=== PATIENT | female | born 2005 | race Caucasian/White ===

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

== ENCOUNTER 2024-02-26 19:29 | Emergency (ER) | payer OTHER ==
[~2024-02-26] VITALS: Ht 162.6 cm; Wt 68.5 kg
[~2024-02-26 19:29] MED LIST: IRON240 MG
[2024-02-26] MEDS ORDERED: PRENATAL 19 CH1 EACH PO (20:11)
[2024-02-26] MEDS ORDERED: CEFTRIAXONE SODIUM 1,000 MG VIAL IM ONE (20:30)
[2024-02-26 20:54] LABS: PH,URINE 5.5 (5.0-8.0); URINE APPEARANCE Cloudy; URINE BILIRRUBIN Negative (NEGATIVE); URINE COLOR Yellow; URINE GLUCOSE Negative (NEGATIVE); URINE KETONE Trace (NEGATIVE); URINE LEUKOCYTE Moderate; URINE NITRATE Negative; URINE PROTEIN 30 (NEGATIVE)
[2024-02-26 20:58] LABS: URINE BACTERIA 658.9 uL (0.0-1933); URINE EPITHELIAL CELLS 14.8 uL (0.0-38.8); URINE WBC 2730.6 uL (0.0-23.2)
[2024-02-26 21:29] LABS: URINE CAST 0.15 uL (0.0-1.40)
[2024-02-26 21:30] LABS: URINE BLOOD TRACE
== END 2024-02-26 22:06 | disposition home or self-care (01) ==
LOC: ER 19:29
PROVIDERS: General Practice
DX: O23.31 Infections of other parts of urinary tract in pregnancy, first trimester (principal); N39.0 Urinary tract infection, site not specified; Z3A.01 Less than 8 weeks gestation of pregnancy; Z91.040 Latex allergy status

== ENCOUNTER 2024-06-14 20:42 | Outpatient (CLI) | payer OTHER ==
[2024-06-14 20:04] VITALS: BP 101/63
[~2024-06-14 20:42] MED LIST changes: +PRENATAL 19 CH1 EACH PO
[2024-06-14] MEDS ORDERED: RINGERS SOLUTION,LACTATED 1,000 ML IV SCH (21:00)
[2024-06-14 21:10] LABS: URINE APPEARANCE Cloudy; URINE BILIRRUBIN Negative (NEGATIVE); URINE BLOOD Negative; URINE COLOR Dark Yellow; URINE GLUCOSE Negative (NEGATIVE); URINE KETONE Trace (NEGATIVE); URINE LEUKOCYTE Moderate; URINE NITRATE Negative; URINE PROTEIN 30 (NEGATIVE)
[2024-06-14 21:13] LABS: URINE BACTERIA 2491.8 uL (0.0-1933); URINE EPITHELIAL CELLS 26.4 uL (0.0-38.8); URINE RBC 37.8 uL (0.0-20.8)
[2024-06-14 21:24] LABS: HEMATOCRIT 25.6 % (36.0-45.00); MEAN CORPUSCULAR HGB CONC 32.9 g/dl (32.0-36.0); PLATELET COUNT 275 K/uL (150-450); RED BLOOD COUNT 3.51 M/uL (4.00-6.00)
[2024-06-14 21:25] LABS: HEMOGLOBIN 8.4 g/dL (12.0-15.00); MEAN CORPUSCULAR HEMOGLOBIN 23.9 pg (27.00-32.0)
[2024-06-14 21:35] LABS: RED CELL DISTRIBUTION WIDTH 16.2 % (11.5-14.5)
[2024-06-14] MEDS ORDERED: SOD FERRIC GLUC COMPLX/SUCROSE 125 MG in 0.9 % SODIUM CHLORIDE 100 ML IV SCH (22:01)
[2024-06-14 22:20] LABS: URINE CAST 0.14 uL (0.0-1.40); URINE YEAST MODERATE /hpf
[2024-06-14 22:26] LABS: ALBUMIN 2.7 gm/dL (3.4-5.0); BILIRUBIN TOTAL 0.33 mg/dL (0.3-1.2); CALCIUM 8.4 mg/dL (8.5-10.1); CREATININE SERUM 0.56 mg/dL (0.55-1.02); GFR 136.65; GLOBULINA 3.8 G/DL (2.4-3.5); POTASSIUM 4.14 mEq/L (3.5-5.1); TOTAL PROTEIN 6.5 gm/dL (6.4-8.2)
[2024-06-14] MEDS ORDERED: AZITHROMYCIN 500 MG TABLET PO ONE (22:30)
[2024-06-14 23:14] VITALS: BP 108/68
[2024-06-14 23:43] VITALS: BP 108/68
== END 2024-06-14 23:43 | disposition home or self-care (01) ==
LOC: OBS/DEL 20:42
PROVIDERS: ATTEND Obstetrics & Gynecology
DX: O26.893 Other specified pregnancy related conditions, third trimester (principal); Z3A.30 30 weeks gestation of pregnancy; A49.3 Mycoplasma infection, unspecified site

== ENCOUNTER 2024-08-07 17:03 | Outpatient (CLI) | payer OTHER ==
[~2024-08-07] VITALS: Ht 162.6 cm; Wt 82.6 kg
[2024-08-07 16:18] VITALS: BP 94/61
[2024-08-07] MEDS ORDERED: RINGERS SOLUTION,LACTATED 1,000 ML IV SCH (17:15)
[2024-08-07 18:04] LABS: URINE APPEARANCE Cloudy; URINE BILIRRUBIN Small (NEGATIVE); URINE BLOOD Negative; URINE COLOR Dark Yellow; URINE GLUCOSE Negative (NEGATIVE); URINE KETONE Trace (NEGATIVE); URINE LEUKOCYTE Small; URINE NITRATE Negative; URINE PROTEIN 30 (NEGATIVE)
[2024-08-07 18:05] LABS: HEMOGLOBIN 8.1 g/dL (12.0-15.00); MEAN CELL VOLUME 66.9 fL (80.00-100.00); MEAN CORPUSCULAR HEMOGLOBIN 21.6 pg (27.00-32.0); MEAN CORPUSCULAR HGB CONC 32.2 g/dl (32.0-36.0); PLATELET COUNT 295 K/uL (150-450); RED BLOOD COUNT 3.74 M/uL (4.00-6.00); RED CELL DISTRIBUTION WIDTH 18.6 % (11.5-14.5)
[2024-08-07 18:08] LABS: URINE BACTERIA 2583.8 uL (0.0-1933); URINE EPITHELIAL CELLS 113.5 uL (0.0-38.8); URINE RBC 3.5 uL (0.0-20.8); URINE WBC 70.7 uL (0.0-23.2)
[2024-08-07 18:23] LABS: URINE CAST 0.29 uL (0.0-1.40)
[2024-08-07 18:24] LABS: URINE MUCUS MODERATE
[2024-08-07] MEDS ORDERED: SOD FERRIC GLUC COMPLX/SUCROSE 62.5 MG/5 ML AMPUL IV NR (19:30)
[2024-08-07 20:02] VITALS: BP 94/60
[2024-08-07 21:34] VITALS: BP 96/60
== END 2024-08-07 21:44 | disposition home or self-care (01) ==
LOC: OBS/DEL 17:03
PROVIDERS: ATTEND Obstetrics & Gynecology
DX: O36.8130 Decreased fetal movements, third trimester, not applicable or unspecified (principal); Z3A.38 38 weeks gestation of pregnancy

== ENCOUNTER 2024-08-11 12:45 | Inpatient (IN) | payer OTHER ==
[~2024-08-11] VITALS: Ht 162.6 cm; Wt 83.5 kg
[2024-08-11 15:10] LABS: PH,URINE 6.5 (5.0-8.0); URINE APPEARANCE Cloudy; URINE BILIRRUBIN Negative (NEGATIVE); URINE BLOOD Negative; URINE COLOR Yellow; URINE GLUCOSE Negative (NEGATIVE); URINE KETONE Negative (NEGATIVE); URINE LEUKOCYTE Moderate; URINE NITRATE Negative; URINE PROTEIN Negative (NEGATIVE)
[2024-08-11 15:14] LABS: URINE EPITHELIAL CELLS 126.3 uL (0.0-38.8); URINE RBC 4.8 uL (0.0-20.8)
[2024-08-11 15:27] LABS: URINE BACTERIA > 9821.5 uL (0.0-1933); URINE CAST 0.58 uL (0.0-1.40); URINE CRYSTALS FEW /HPF
[2024-08-11 15:33] LABS: INR 0.94; PARTIAL THROMBOPLASTIN TIME 23.9 SECONDS (22.0-34.0); PROTHROMBIN TIME 10.3 SECONDS (9.0-11.5)
[2024-08-11 15:39] LABS: RH POSITIVE
[2024-08-11 16:04] LABS: BASO % 0.5 % (0.1-1.2); EOS # 0.16 (0.04-0.54); EOS % 1.6 % (0.7-7.0); LYMPH # 1.89 (1.18-3.74); LYMPH % 18.4 % (19.3-53.1); MEAN CORPUSCULAR HEMOGLOBIN 21.7 pg (25.6-32.2); MONO # 1.23 (0.24-0.82); NEUT # 6.51 (1.56-6.13); NEUT % 63.4 % (34.0-71.1); PLATELET COUNT 269 K/uL (163-369); RED BLOOD COUNT 3.64 M/uL (3.93-5.22); RED CELL DISTRIBUTION WIDTH 19.3 % (11.6-14.4)
[2024-08-11 16:16] LABS: HEMATOCRIT 25.7 % (34.1-44.9)
[2024-08-11 16:19] LABS: HEMOGLOBIN 7.9 g/dL (11.2-15.7)
[2024-08-15] MEDS ORDERED: IRON236 MG PO (21:37)
[2024-08-15 21:49] VITALS: BP 103/70
[2024-08-15] MEDS ORDERED: RINGERS SOLUTION,LACTATED 1,000 ML IV SCH (22:15)
[2024-08-15 23:24] VITALS: BP 108/74
[2024-08-15 23:36] LABS: BASO % 0.4 % (0.1-1.2); EOS # 0.18 (0.04-0.54); EOS % 1.7 % (0.7-7.0); HEMATOCRIT 27.2 % (34.1-44.9); LYMPH # 2.29 (1.18-3.74); LYMPH % 21.2 % (19.3-53.1); MEAN CORPUSCULAR HEMOGLOBIN 20.8 pg (25.6-32.2); MONO # 1.35 (0.24-0.82); NEUT # 6.75 (1.56-6.13); NEUT % 62.3 % (34.0-71.1); PLATELET COUNT 298 K/uL (163-369); RED BLOOD COUNT 3.89 M/uL (3.93-5.22)
[2024-08-16 00:07] LABS: MONO % 12.5 % (4.7-12.5)
[2024-08-16 00:08] LABS: HEMOGLOBIN 8.1 g/dL (11.2-15.7)
[2024-08-16 03:57] VITALS: BP 106/69
[2024-08-16 06:49] VITALS: BP 108/73; O2SAT 98
[2024-08-16 11:32] VITALS: BP 118/76
[2024-08-16 16:09] VITALS: BP 104/70
[2024-08-16 17:13] LABS: BASO % 0.6 % (0.1-1.2); HEMATOCRIT 31.7 % (34.1-44.9); LYMPH # 1.84 (1.18-3.74); LYMPH % 19.1 % (19.3-53.1); MEAN CORPUSCULAR HEMOGLOBIN 22.1 pg (25.6-32.2); MONO # 0.94 (0.24-0.82); MONO % 9.8 % (4.7-12.5); NEUT # 6.56 (1.56-6.13); NEUT % 68.3 % (34.0-71.1); PLATELET COUNT 258 K/uL (163-369); RED BLOOD COUNT 4.43 M/uL (3.93-5.22); RED CELL DISTRIBUTION WIDTH 20.4 % (11.6-14.4)
[2024-08-16 17:16] LABS: HEMOGLOBIN 9.8 g/dL (11.2-15.7)
[2024-08-16] MEDS ORDERED: ERYTHROMYCIN BASE OPHT 1GM EACH TUBE OP ONE (18:45)
[2024-08-16] MEDS ORDERED: OXYTOCIN 10 UNITS/ML VIAL ONE (18:45)
[2024-08-16] MEDS ORDERED: CEFOXITIN SODIUM 2,000 MG VIAL IV ONE (20:04)
[2024-08-16] MEDS ORDERED: KETOROLAC TROMETHAMINE 60 MG VIAL IM STA (21:44)
[2024-08-16] MEDS ORDERED: OXYTOCIN 1,000 ML IV SCH (21:45)
[2024-08-16] MEDS ORDERED: MORPHINE SULFATE 4 MG/ML VIAL IV ONE ×2 (21:45→22:15)
[2024-08-16] MEDS ORDERED: MORPHINE SULFATE 4 MG/ML CARTRIDGE IV PRN (21:45)
[2024-08-16] MEDS ORDERED: CHLORHEXIDINE GLUCONATE 120 ML BOTTLE TOP ONE (21:45)
[2024-08-16] MEDS ORDERED: RINGERS SOLUTION,LACTATED 1,000 ML IV SCH (21:45)
[2024-08-16] MEDS ORDERED: ONDANSETRON HCL 2 MG/ML VIAL ONE (21:58)
[2024-08-16 23:19] LABS: BASO % 0.6 % (0.1-1.2); EOS # 0.04 (0.04-0.54); EOS % 0.4 % (0.7-7.0); HEMATOCRIT 37.7 % (34.1-44.9); HEMOGLOBIN 11.7 g/dL (11.2-15.7); LYMPH # 1.62 (1.18-3.74); MEAN CORPUSCULAR HEMOGLOBIN 22.5 pg (25.6-32.2); MONO # 0.55 (0.24-0.82); MONO % 5.1 % (4.7-12.5); NEUT # 8.33 (1.56-6.13); NEUT % 77.3 % (34.0-71.1); PLATELET COUNT 276 K/uL (163-369); RED BLOOD COUNT 5.19 M/uL (3.93-5.22); RED CELL DISTRIBUTION WIDTH 20.9 % (11.6-14.4)
[2024-08-17] MEDS ORDERED: OXYTOCIN 10 UNITS/ML VIAL ONE (00:57)
[2024-08-17 03:32] VITALS: BP 114/73
[2024-08-17] MEDS ORDERED: ACETAMINOPHEN WITH CODEINE 1 UDTAB TABLET PO PRN (09:00)
[2024-08-17 12:56] VITALS: BP 111/78
[2024-08-17 17:04] VITALS: BP 109/75
[2024-08-18 02:53] VITALS: BP 108/68
[2024-08-18 09:37] VITALS: BP 99/62
[2024-08-18 16:04] VITALS: BP 96/62
[2024-08-19 01:21] VITALS: BP 117/82
[2024-08-19 08:19] VITALS: BP 116/75
== END 2024-08-19 14:26 | disposition home or self-care (01) | DRG 788 ==
LOC: OB/GYN 08-15 21:23 → LDR 08-15 21:23 → OB/GYN 08-16 12:45 → O/R 08-16 15:02 → LDR 08-16 15:04 → OB/GYN 08-16 15:30 → O/R 08-16 19:39 → OB/GYN 08-16 23:54
PROVIDERS: ADMIT Obstetrics & Gynecology; ATTEND Obstetrics & Gynecology
PROC: 4A1HXCZ Monitoring of Products of Conception, Cardiac Rate, External Approach (ICD-10-PCS; 2024-08-15)
PROC: 10D00Z1 Extraction of Products of Conception, Low, Open Approach (ICD-10-PCS; principal; 2024-08-16 22:30)
DX: O36.63X0 Maternal care for excessive fetal growth, third trimester, not applicable or unspecified (principal); O99.02 Anemia complicating childbirth; D64.9 Anemia, unspecified; O34.211 Maternal care for low transverse scar from previous cesarean delivery; Z3A.39 39 weeks gestation of pregnancy; Z37.0 Single live birth

== ENCOUNTER 2024-10-18 18:31 | Emergency (ER) | payer OTHER ==
[~2024-10-18] VITALS: Ht 162.6 cm; Wt 70.3 kg
[~2024-10-18 18:31] MED LIST changes: +IRON236 MG PO
[2024-10-18] MEDS ORDERED: KETOROLAC TROMETHAMINE 60 MG VIAL IM ONE (19:45)
[2024-10-18 20:16] LABS: BASO % 0.5 % (0.1-1.2); EOS # 0.23 (0.04-0.54); EOS % 2.1 % (0.7-7.0); LYMPH # 2.59 (1.18-3.74); LYMPH % 23.5 % (19.3-53.1); MEAN PLATELET VOLUME 9.90 fl (9.4-12.4); MONO # 1.00 (0.24-0.82); MONO % 9.1 % (4.7-12.5); NEUT # 7.07 (1.56-6.13); NEUT % 64.3 % (34.0-71.1); RED CELL DISTRIBUTION WIDTH 20.2 % (11.6-14.4)
[2024-10-18 20:32] LABS: URINE APPEARANCE Clear; URINE BILIRRUBIN Negative (NEGATIVE); URINE BLOOD Moderate; URINE COLOR Yellow; URINE GLUCOSE Negative (NEGATIVE); URINE KETONE Negative (NEGATIVE); URINE LEUKOCYTE Moderate; URINE NITRATE Negative; URINE PROTEIN 30 (NEGATIVE); URINE UROBILINOGEN 0.2 E.U./dl
[2024-10-18 20:33] LABS: URINE BACTERIA 3693.6 uL (0.0-1933); URINE EPITHELIAL CELLS 14.6 uL (0.0-38.8); URINE RBC 15.5 uL (0.0-20.8); URINE WBC 701.3 uL (0.0-23.2)
[2024-10-18 20:38] LABS: URINE CAST 0.14 uL (0.0-1.40)
[2024-10-18 20:42] LABS: ALT/SGPT 22.0 U/L (12-78); AST/SGOT 12.0 U/L (15-37); BILIRUBIN TOTAL 0.37 mg/dL (0.3-1.2); BUN CREA RATIO 14.0 (7.0-25.0); CREATININE SERUM 0.69 mg/dL (0.55-1.02); GFR 107.4; GLOBULINA 4.5 G/DL (2.4-3.5); GLUCOSE FASTING 98.0 mg/dL (65-100); OSMOLALITY SERUM 280.0 MOSM/KG (275-295)
[2024-10-18] MEDS ORDERED: CEFTRIAXONE SODIUM 1,000 MG VIAL IM ONE (22:30)
[2024-10-18] MEDS ORDERED: CEPHALEXIN500 M1 PO (22:32)
== END 2024-10-18 22:40 | disposition home or self-care (01) ==
LOC: ER 18:41
PROVIDERS: General Practice
DX: R10.9 Unspecified abdominal pain (principal); N39.0 Urinary tract infection, site not specified; Z91.040 Latex allergy status

== ENCOUNTER 2024-12-18 14:31 | Emergency (ER) | payer OTHER ==
[~2024-12-18] VITALS: Ht 162.6 cm; Wt 81.6 kg
[~2024-12-18 14:31] MED LIST changes: +CEPHALEXIN500 M1 PO
[2024-12-18] MEDS ORDERED: LIDOCAINE HCL 1% 10ML VIAL PERCUT ONE (16:30)
[2024-12-18] MEDS ORDERED: CEFTRIAXONE SODIUM 1,000 MG VIAL IM ONE (16:30)
[2024-12-18] MEDS ORDERED: DIPHTH,PERTUSS(ACELL),TET VAC 0.5 ML SYRINGE IM ONE (16:30)
[2024-12-18] MEDS ORDERED: CEFADROXIL500 MG PO (17:01)
== END 2024-12-18 17:07 | disposition home or self-care (01) ==
LOC: ER 14:37
DX: S61.011A Laceration without foreign body of right thumb without damage to nail, initial encounter (principal); W45.8XXA Other foreign body or object entering through skin, initial encounter; Y93.89 Activity, other specified; Y92.89 Other specified places as the place of occurrence of the external cause; Y99.9 Unspecified external cause status; Z91.040 Latex allergy status